=== PATIENT | male | born 1950 | race Caucasian/White ===

== ENCOUNTER → 2018-06-06 | Outpatient (CLI) | payer BC ==
--- NOTE | 2018-06-06 21:17 | DIREP ---
PROCEDURE:XRAY RIBS 3VWS-RT COMPARISON:None. INDICATIONS:FALLING FROM THE STAIRS FINDINGS: RIBS:No fracture. OTHER:No additional findings. CONCLUSION:Normal right ribs. Dictated by: Daniel Ernst M.D. on 06/06/2018 at 09:15 PM
--- NOTE | 2018-06-06 21:19 | DIREP ---
PROCEDURE:XRAY WRIST MIN 3VW-LT COMPARISON:None. INDICATIONS:FALLEN FROM THE STAIRS FINDINGS: BONES:Normal. No fractures. JOINTS:Normal. SOFT TISSUES:Small metallic density in the soft tissues volar to the distal ulna. OTHER:No additional findings. CONCLUSION:Small metallic density in the volar aspect of the distal wrist. No fractures. Dictated by: Daniel Ernst M.D. on 06/06/2018 at 09:16 PM
== END | disposition home or self-care (01) ==
LOC: RAD 18:50
PROVIDERS: ATTEND Nurse Practitioner Adult Health
DX: M25.532 Pain in left wrist (principal); M54.89 Other dorsalgia; W10.8XXA Fall (on) (from) other stairs and steps, initial encounter; Y93.89 Activity, other specified; Y92.89 Other specified places as the place of occurrence of the external cause; Y99.8 Other external cause status
CPT/HCPCS: 71100-RT; 73110-LT